=== PATIENT | female | born 1960 | race Caucasian/White ===

== ENCOUNTER 2016-10-11 17:41 | Emergency (ER) | payer BC ==
[2016-10-11 19:08] VITALS: BP 130/93
[2016-10-11] MEDS ORDERED: Sulfamethox/Trimethoprim DS 800/160* TAB PO ONE (19:30)
[2016-10-11] MEDS ORDERED: metroNIDAZOLE TAB* 250 MG PO ONE (19:30)
--- NOTE | 2016-10-11 19:30 | UC ---
Abdominal Pain Female HPI - History of Current Complaint Chief Complaint: UCGI Stated Complaint: POSSIBLE DIVERTICULITIS Hx Obtained From: Patient ?: No Onset/Duration: Sudden Onset, Lasting Days - 2, Worse Since - today Severity Initially: Mild Severity Currently: Moderate Location: Discrete At: LLQ Radiates: No Character: Dull Aggravating Factor(s): Movement, Other: - touch Alleviating Factor(s): Nothing Associated Signs and Symptoms: Positive: Fever. Negative: Back Pain, Constipation, Urinary Symptoms, Nausea, Vomiting, Diarrhea - Risk Factors Ectopic Risk Factor: Negative Ovarian Torsion Risk Factor: Negative Allergies/Adverse Reactions: Allergies Allergy/AdvReac Type Severity Reaction Status Date / Time Ciprofloxacin Allergy Swelling Verified 10/11/16 19:08 Of Face,Lips,& Throat Clavulanic Acid AdvReac Intermediate diarhhea Verified 09/09/13 16:09 [From Augmentin] Amoxicillin [From Augmentin] AdvReac Diarrhea Verified 09/09/13 16:09 Home Medications: Home Medications Multivitamins/Minerals TAB* [Thera M Plus TAB*] 1 tab PO DAILY 10/11/16 [ History Confirmed 10/11/16] PMH/Surg Hx/FS Hx/Imm Hx Endocrine History Of: Denies: Diabetes Cardiovascular History Of: Reports: Hypertension Denies: Cardiac Disorders Respiratory History Of: Denies: Asthma GI/ History Of: Reports: Diverticulitis Cancer History Of: Denies: Breast Cancer - Surgical History Surgical History: Yes Surgery Procedure, Year, and Place: OVARY REMOVED, HYSTERCTOMY, CSECTION - Family History Known Family History: Positive: Cardiac Disease, Hypertension, Diabetes - Social History Occupation: Retired Lives: With Family Alcohol Use: Occasionally Substance Use Type: None Smoking Status (MU): Never Smoked Tobacco Have You Smoked in the Last Year: No Review of Systems Constitutional: Fever Gastrointestinal: Abdominal Pain All Other Systems Reviewed And Are Negative: Yes Physical Exam Triage Information Reviewed: Yes Appearance: Well-Appearing, No Pain Distress - at rest, Well-Nourished Vital Signs: Initial Vital Signs Temp 100.5 F 10/11/16 19:00 Pulse 94 10/11/16 19:00 Resp 20 10/11/16 19:00 BP 130/93 10/11/16 19:00 Vital Signs Reviewed: Yes Eyes: Positive: Conjunctiva Clear ENT: Positive: Pharynx normal, TMs normal Neck exam: Normal Respiratory Exam: Normal Cardiovascular: Positive: RRR, Murmur:Sys:Grade _?_/ - 2/6 Abdomen Description: Negative: Nontender - Tender in the LLQ, Distended, Guarding, Hepatomegaly, Peritoneal Signs Bowel Sounds: Positive: Present Musculoskeletal Exam: Normal Neurological Exam: Normal Psychological Exam: Normal Skin Exam: Normal Abd Pain Female Course/Dx - Differential Dx/Diagnosis Differential Diagnosis: Appendicitis, Constipation, Diverticulitis Provider Diagnoses: Acute diverticulitis Discharge - Discharge Plan Condition: Stable Disposition: HOME Prescriptions: Metronidazole [Flagyl 500 MG TAB] 500 mg PO TID #30 tab Sulfamethox/Trimethoprim DS* [Bactrim DS 800/160 TAB*] 1 tab PO BID #20 tab Patient Education Materials: Diverticulitis (ED), Sulfamethoxazole/ Trimethoprim (By mouth), Metronidazole (By mouth)
== END 2016-10-11 19:55 | disposition home or self-care (01) ==
LOC: UCCORT 17:41
DX: K57.92 Diverticulitis of intestine, part unspecified, without perforation or abscess without bleeding (principal); R50.9 Fever, unspecified; Z88.1 Allergy status to other antibiotic agents; I10 Essential (primary) hypertension
CPT/HCPCS: 81003; 99213; A9270-GY; G0463

== ENCOUNTER 2017-08-15 07:53 | Emergency (ER) | payer BC ==
--- OUTSIDE RECORDS SUMMARY | 2017-08-15 08:03 | XMS REPORT ---
:1960 External Reference #:[id number] [facility] Address [address] [address] Phone [phone] Care Team Providers Name Role Phone Miesha Alegria MD Primary Care Physician Unavailable Payers Type Date Identification Numbers Payment Provider Subscriber Commercial Effective: Policy Number: BCBS Commercial Le Albarran 2011 [id number] PayID: [id number] [facility] [address] [place] [address] Problems Date Description Provider Status Onset: 07/11/2011 Vitamin D deficiency Miesha Alegria MD Active Onset: 09/28/2009 Heartburn Miesha Alegria MD Active Onset: 09/19/2014 Pure hypercholesterolemia Miesha Alegria MD Active Onset: 06/25/2015 Essential hypertension Miesha Alegria MD Active Onset: 06/25/2015 Asthma without status asthmaticus Miesha Alegria MD Active Onset: 02/06/2017 Obesity Thierno Cardona MD Active Onset: 07/10/2016 Mixed hyperlipidemia Miesha Alegria MD Active Onset: 02/07/2016 Tricuspid valve disorder, non-rheumatic Thierno Cardona MD Active Onset: 02/07/2016 Mitral valve disorder Thierno Cardona MD Active Family History Date Family Member(s) Problem(s) Comments Father Hypercholesterolemia Father due to Heart Disease () - (age 87 Years) Father Hypertension Father Diabetes, Adult Diabetes Mellitus, II Father CAD Mother Diabetes, Adult Diabetes Mellitus, II Mother due to CHF () - (age 89 Years). 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 Hand Dominance RIGHT-handed Cigarette Use Never Smoked Cigarettes ETOH Use Rarely consumes alcohol a couple drinks per year Smoking Patient has never smoked Daily Caffeine Consumes on average 2 cups of coffee per day Allergies, Adverse Reactions, Alerts Date Description Reaction Status Severity Comments 08/09/2013 Cipro Hives, Tightening In Throat active 08/09/2013 Augmentin Diarrhea & Dehydration active Medications Medication Date Status Form Strength Qnty SIG Indications Ordering Provider Pantoprazole 01/26/ Active Tablets 20mg 90tabs 1 by mouth Vanesa Alegria DR daily do not MD Miesha fill until pt needs Flovent HFA 03/13/ Active Aerosol 44mcg/Act 31.8gm 2 puff bid Raji 2015 MD Miesha Proair HFA 01/15/ Active Aerosol 108(90Base 1units 2 puffs Raji2014 ) mcg/Act every 4 MD Miesha hours as needed Centrum Silver 09/28/ Active Tablets 1 po qd Raji 2009 MD Miesha Atenolol / Active Tablets 100mg 90tabs take 1 Raji, 0000 tablet once MD Miesha daily Doxazosin / Active Tablets 8mg 180tab take 2 Raji, Mesylate 0000 s tablets by MD Miesha mouth at bedtime Famotidine 07/10/ Hx Tablets 10mg one a day Raji 2015 - otc MD Miesha 2016 Ventolin HFA 04/06/ Hx Aerosol 108mcg/Act 1Units 2 Raji2013 - inhalations MD Miesha 01/15/ every 4 2014 hours as needed cough or sob Ventolin HFA 25/ Hx Aerosol 108mcg/Act 1units 2 Raji 2013 - inhalations MD Miesha 09/21/ every 4 2014 hours as needed cough or sob Flovent HFA 01/12/ Hx Aerosol 44mcg/Act 3Units 2 Raji 2013 - inhalations MD Miesha 03/13/ twice a day 2015 Flovent HFA 01/12/ Hx Aerosol 44mcg/Act 3units 2 Raji 2013 - inhalations MD Miesha 09/21/ bid 2014 Pantoprazole / Hx Tablets 40mg 90tabs take 1 Vanesa Alegria 0000 - DR tablet by MD Miesha once 2016 daily Immunizations CPT Code Status Date Vaccine Reaction Lot # [id number] Given 04/24/2017 Afluria Imunization [facility] Q2035 Given 04/23/2016 Afluria Imunization [facility] Q2035 Given 04/22/2015 Afluria Imunization 09539 Given 05/04/2014 Influenza Vaccine Preservative Free 6-35 [facility] Months Of Age [address] Given 04/29/2013 Afluria Or Fluvirin Flu Vac Intramuscular 63635 Given 01/10/2013 Tdap (Adacel) Ages 7 And Above Only 94939 Given 08/31/2012 Zoster (Zostavax) 66638 Given 01/24/2001 Pneumococcal 23 Immunization Adult Or Immunosuppressed Patient 76984 Given 01/25/1996 Tetanus And Diptheria Toxoids For Adult Use-preservative free Vital Signs Date Vital Result Comment 07/30/2017 Weight 200.00 lb Heart Rate 76 /min BP Systolic 122 mmHg BP Diastolic 70 mmHg Respiratory Rate 18 /min Height 64 inches 5'4" 07/30/17 BMI (Body Mass Index) 34.3 kg/m2 02/06/2017 Weight 202.00 lb Heart Rate 96 /min regular BP Systolic 146 mmHg BP Diastolic 74 mmHg Height 64 inches 5'4" BMI (Body Mass Index) 34.7 kg/m2 01/26/2017 Weight 203.00 lb Heart Rate 72 /min BP Systolic 130 mmHg BP Diastolic 80 mmHg Respiratory Rate 18 /min Height 64 inches 5'4" 10/14/16 BMI (Body Mass Index) 34.8 kg/m2 2016 Body Temperature 97.8 F Weight 199.00 lb Heart Rate 64 /min BP Systolic 122 mmHg BP Diastolic 72 mmHg Respiratory Rate 18 /min Height 64 inches 5'4" 10/14/16 BMI (Body Mass Index) 34.2 kg/m2 07/10/2016 Weight 199.00 lb Heart Rate 68 /min BP Systolic 122 mmHg BP Diastolic 80 mmHg Respiratory Rate 18 /min Height 64 inches 5'4" 07/10/16 BMI (Body Mass Index) 34.2 kg/m2 02/07/2016 Weight 200.00 lb Heart Rate 72 /min regular BP Systolic 118 mmHg BP Diastolic 68 mmHg Height 64 inches 5'4" BMI (Body Mass Index) 34.3 kg/m2 01/23/2016 Weight 199.00 lb Heart Rate 76 /min BP Systolic 122 mmHg BP Diastolic 80 mmHg Respiratory Rate 18 /min Height 64.5 inches 5'4.50" BMI (Body Mass Index) 33.6 kg/m2 06/25/2015 Weight 216.00 lb Heart Rate 76 /min BP Systolic 140 mmHg BP Diastolic 70 mmHg Respiratory Rate 18 /min Height 64.5 inches 5'4.50" BMI (Body Mass Index) 36.5 kg/m2 01/15/2015 Weight 212.00 lb Heart Rate 68 /min BP Systolic 132 mmHg BP Diastolic 90 mmHg Respiratory Rate 185 /min Height 64.5 inches 5'4.50" BMI (Body Mass Index) 35.8 kg/m2 09/21/2014 Weight 210.00 lb BP Systolic 138 mmHg BP Diastolic 82 mmHg Respiratory Rate 18 /min Height 64.5 inches 5'4.50" BMI (Body Mass Index) 35.5 kg/m2 04/06/2014 Weight 212.00 lb Heart Rate 76 /min BP Systolic 124 mmHg BP Diastolic 84 mmHg Respiratory Rate 18 /min Height 64.5 inches 5'4.50" 01/12/2014 Weight 206.00 lb Heart Rate 76 /min BP Systolic 122 mmHg BP Diastolic 70 mmHg Respiratory Rate 18 /min Height 64.5 inches 5'4.50" 12/30/2013 Body Temperature 99.8 F Weight 208.00 lb Heart Rate 78 /min BP Systolic 132 mmHg BP Diastolic 70 mmHg Respiratory Rate 18 /min Height 64.5 inches 5'4.50" O2 % BldC Oximetry 93 % 10/19/2013 Body Temperature 98.7 F Weight 209.00 lb Heart Rate 72 /min BP Systolic 126 mmHg BP Diastolic 76 mmHg Respiratory Rate 18 /min Height 64.5 inches 5'4.50" Results Test Date Test Result H/L Range Note Laboratory test finding 01/19/2017 Vit D,25 Hydroxy 35 ng/mL 31-100 CBC With Auto Diff 01/19/2017 WBC 4.5 K/uL 4.1-11.0 RBC 4.32 M/uL 4.00-5.40 Hemoglobin 14.0 gm/dL 12.0-16.0 Hematocrit 40.7 % 36.0-47.0 MCV 94.2 fL 80.0-97.0 MCH 32.5 pg High 27.0-32.0 MCHC 34.5 g/dL 32.0-36.0 RDW 12.9 % 11.5-14.5 PLT Count 153 K/ul 140-400 Neutrophil 45.0 % 35.0-75.0 Lymphocyte 37.2 % 16.0-52.0 Monocyte 8.9 % 2.0-10.0 Eosinophil 7.6 % High 0.0-5.0 Basophil 1.3 % 0.0-4.0 Abs Neutrophils 2.0 K/uL Low 2.1-8.0 Abs Lymphocytes 1.7 K/uL 0.8-5.5 Abs Monocytes 0.4 K/uL 0.1-1.0 Abs Eosinophils 0.3 K/uL 0.0-0.5 Abs Basophils 0.1 K/uL 0.0-0.3 Lipid 01/19/2017 Cholesterol 233 mg/dL High 50-199 Triglycerides 139 mg/dL 30-200 HDL 60 mg/dL 35-85 1 Chol/ HDL Ratio 3.9 ratio 3.7-5.6 VLDL 28 mg/dL 2-29 LDL (Calc) 145 mg/dL High 20-99 2 Laboratory test finding 01/19/2017 TSH 2.11 uIU/mL 0.35-4.94 Hepatitis C Virus Antibody NONREACTIVE Nonreactive Comprehensive Met Panel-FCM 01/19/2017 Sodium 143 mmol/L 135-146 3 Potassium 4.2 mmol/L 3.5-5.2 Chloride# 109 mmol/L 97-110 4 Carbon Dioxide 27 mmol/L 24-34 Glucose 100 mg/dL 70-105 BUN 18 mg/dL 6-26 Creatinine 0.8 mg/dL 0.5-1.4 Calcium 9.7 mg/dL 8.5-10.2 Total Protein 6.2 g/dL 6.0-8.0 Albumin 4.2 g/dL 3.6-4.9 Globulin 2.0 g/dL 2.0-3.5 A/G Ratio 2.1 Ratio 1.0-2.2 Total Bilirubin 1.1 mg/dL 0.1-1.3 Alkaline Phosphatase 79 U/L 24-140 Alt 20 U/L 3-42 Ast 18 U/L 8-42 Anisa Egfr >60 >60 5 Non Anisa Egfr >60 >60 6 Anion Gap 11 mmol/L 7-16 7 Lipid Treatment 07/03/2016 Cholesterol 242 mg/dL High 50-199 8 Triglycerides 177 mg/dL 30-200 8 HDL 61 mg/dL 35-85 8, 9 Chol/ HDL Ratio 4.0 ratio 3.7-5.6 8 VLDL 35 mg/dL High 2-29 8 LDL (Calc) 146 mg/dL High 20-99 8, 10 Alt 18 U/L 3-42 8 Ast 17 U/L 8-42 8 CMP, Comp Metabolic Panel 01/16/2016 Glucose 95 mg/dL 74-106 BUN 16 mg/dL 7-18 Creatinine 0.7 mg/dL 0.6-1.3 Glom Filtration Rate, Estimate >60 mL/min >60 If >60 mL/min >60 11 BUN/Creat 22.8 ratio Sodium 142 mmol/L 136-145 Potassium 4.0 mmol/L 3.5-5.1 Chloride 107 mmol/L 98-107 Carbon Dioxide 29 mmol/L 21-32 Anion Gap 6 mEq/L Low 8-16 Calcium 9.4 mg/dL 8.5-10.1 Total Protein 7.0 g/dL 6.4-8.2 Albumin 3.8 g/dL 3.4-5.0 Globulin 3.2 g/dL 1.9-4.3 Alb/Glob 1.2 ratio Bilirubin,Total 1.5 mg/dL High 0.2-1.0 Sgot/Ast 20 U/L 15-37 SGPT/Alt 29 U/L 12-78 Alkaline Phosphatase 104 U/L 45-117 CBC With Auto Diff 01/16/2016 White Blood Count 4.9 K/uL 3.1-10.7 Red Blood Count 4.69 M/uL 3.90-5.40 Hemoglobin 15.0 gm/dL 11.6-15.8 Hematocrit 43.4 % 36.0-46.1 Mean Cell Volume 92.5 fl 80.9-99.0 Mean Corpuscular HGB 32.0 pg 25.9-32.7 Mean Corpuscular HGB Conc 34.6 g/dL High 30.8-34.3 Platelet Count 173 K/uL 155-360 Red Cell Distri Width SD 42.1 fl 3-47 Red Cell Distri Width %CV 13.0 % 11.7-14.4 Mean Platelet Volume 11.2 fL 8.9-12.4 Neut% 50.7 % 40.4-72.8 Lymph % 32.8 % 17.0-46.1 Manati % 8.5 % 4.3-13.2 Eo% 6.6 % 0.0-6.6 Bas% 1.4 % High 0.0-1.1 Neut# 2.46 K/uL 1.8-7.0 Lymph # 1.59 K/uL Low 1.8-7.0 Manati # 0.41 K/uL 0.3-0.9 Eos # 0.32 K/uL 0.0-0.5 Baso # 0.07 K/uL 0.0-0.1 Laboratory test finding 01/16/2016 Thyroid Stim Hormone 1.46 uIU/mL 0.30- 4.20 Lipid Panel 01/16/2016 Cholesterol 247 mg/dL High <200 12 Triglycerides 241 mg/dL High <150 13 HDL Cholesterol 55 mg/dL >40 14 LDL-Cholesterol 144 mg/dL < 100 15 Laboratory test 01/15/2015 HPV Laboratory Allia 16 finding <SEE NOTE> Laboratory test 01/15/2015 Pap Smear Thin SEE NOTE 17 finding Prep Laboratory test 01/09/2015 Vit D,25 Hydroxy 45 ng/mL 31-100 18 finding Basic (BMP) 01/09/2015 Sodium 139 mmol/L 134-142 18 Potassium 4.4 mmol/L 3.5-5.2 18 Chloride 103 mmol/L 97-109 18 Carbon Dioxide 29 mmol/L 24-34 18 Glucose 100 mg/dL 70-105 18 BUN 16 mg/dL 6-26 18 Creatinine 0.8 mg/dL 0.5-1.4 18 Calcium 10.0 mg/dL 8.5-10.2 18 Anion Gap 11 mmol/L 6-14 18 Non Anisa Egfr >60 >60 18, 19 Anisa Egfr >60 >60 18, 20 Lipid Treatment 01/09/2015 Cholesterol 234 mg/dL High 50-199 18 Triglycerides 208 mg/dL High 30-200 18 HDL 51 mg/dL 35-85 18, 21 Chol/ HDL Ratio 4.6 ratio 3.7-5.6 18 VLDL 42 mg/dL High 2-29 18 LDL (Calc) 141 mg/dL High 20-99 18, 22 Alt 22 U/L 3-42 18 Ast 20 U/L 8-42 18 Laboratory test finding 01/09/2015 TSH 2.31 uIU/mL 0.35-4.94 18 CBC With Auto Diff 01/09/2015 WBC 4.9 K/uL 4.1-11.0 18 RBC 4.68 M/uL 4.00-5.40 18 Hemoglobin 15.2 gm/dL 12.0-16.0 18 Hematocrit 43.7 % 36.0-47.0 18 MCV 93.3 fL 80.0-97.0 18 MCH 32.5 pg High 27.0-32.0 18 MCHC 34.8 g/dL 32.0-36.0 18 RDW 13.1 % 11.5-14.5 18 PLT Count 171 K/ul 140-400 18 Neutrophil 47.8 % 35.0-75.0 18 Lymphocyte 33.7 % 16.0-52.0 18 Monocyte 8.3 % 2.0-10.0 18 Eosinophil 7.5 % High 0.0-5.0 18 Basophil 2.7 % 0.0-4.0 18 Abs Neutrophils 2.4 K/uL 2.1-8.0 18 Abs Lymphocytes 1.7 K/uL 0.8-5.5 18 Abmon 0.4 K/uL 0.1-1.0 18 Abs Eosinophils 0.4 K/uL 0.0-0.5 18 Abs Basophils 0.1 K/uL 0.0-0.3 18 Lipid Panel 03/30/2014 Chol/HDL Ratio 4.6 ratio Cholesterol 237.0 mg/dL High 50.0-199.0 HDL 52.0 mg/dL 29.0-86.0 LDL, Calculated 146.0 mg/dL High 20.0-129.0 Triglycerides 195.0 mg/dL 30.0-249.0 vLDL 39.0 ng/dL Laboratory test finding 03/30/2014 Alt 35.0 U/L 9.0-52.0 Ast 24.0 U/L 14.0-36.0 Lipid Panel 01/09/2014 Chol/HDL Ratio 4.3 ratio Cholesterol 226.0 mg/dL High 50.0-199.0 HDL 53.0 mg/dL 29.0-86.0 LDL, Calculated 141.6 mg/dL High 20.0-129.0 Triglycerides 157.0 mg/dL 30.0-249.0 vLDL 31.4 ng/dL Laboratory test finding 01/09/2014 Alt 20.0 U/L 9.0-52.0 Ast 18.0 U/L 14.0-36.0 Laboratory test finding 12/30/2013 Throat Culture Complete See Note 23 Laboratory test finding 10/19/2013 Culture Urine See Note 24 Lipid Panel 07/04/2013 Chol/HDL Ratio 3.8 ratio Cholesterol 200.0 mg/dL High 50.0-199.0 HDL 53.0 mg/dL 29.0-86.0 LDL, Calculated 120.2 mg/dL 20.0-129.0 Triglycerides 134.0 mg/dL 30.0-249.0 vLDL 26.8 ng/dL Laboratory test finding 07/04/2013 % Baso. 3.3 % High 0.0-2.0 % Eos. 6.2 % High 0.0-4.0 % Lymph 33 % 20-44 % Manati 7.8 % 2.0-10.0 % Andres 50 % 50-70 Absolute Baso. 0.2 K/ul 0.0-0.3 Absolute Eos. 0.3 K/ul 0.0-0.5 Absolute Lymph. 1.6 K/ul 0.8-4.8 Absolute Manati. 0.4 K/ul 0.1-1.0 Absolute Andres. 2.38 K/ul 2.05-7.63 Alt 28.0 U/L 9.0-52.0 Ast 22.0 U/L 14.0-36.0 BUN 17.0 mg/dL 7.0-18.0 BUN/Creat Ratio 21.3 ratio High 12.0-20.0 Calcium 9.7 mg/dL 8.7-10.5 Chloride 107.0 mmol/L 98.0-107.0 Co2 26.0 mmol/L 22.0-30.0 Creatinine-Serum 0.8 mg/dL 0.7-1.2 Glucose 100.0 mg/dL 75.0-110.0 HCT 40.0 % 37.0-51.0 HGB 13.9 Gm/dl 12.0-16.0 MCH 31.6 pg 26.0-32.0 MCHC 34.7 g/dL 31.0-36.0 MCV 91.1 Fl 80.0-97.0 MPV 8.5 fL 6.0-10.0 PLT 192 K/ul 140-440 Potasium 4.0 mmol/L 3.6-5.0 RBC 4.4 M/ul 4.2-6.3 RDW 11.6 % 11.5-14.5 Sodium 141.0 mmil/L 137.0-145.0 TSH 1.33 uIU/ml 0.50-6.00 WBC 4.8 K/ul 4.1-10.9 eGFR 79.4 Lipid Panel 01/03/2013 Chol/HDL Ratio 3.7 ratio Cholesterol 209.0 mg/dL High 50.0-199.0 HDL 56.0 mg/dL 29.0-86.0 LDL, Calculated 128.6 mg/dL 20.0-129.0 Triglycerides 122.0 mg/dL 30.0-249.0 vLDL 24.4 ng/dL Laboratory test finding 01/03/2013 Alt 22.0 U/L 9.0-52.0 Ast 19.0 U/L 14.0-36.0 1 Per NCEP ATP III Guidelines: Results lower than 40 mg/dL are suggestive of increased risk for coronary artery disease. Results > or=to 60 mg/dL are considered a negative risk factor. 2 Per NCEP ATP III Guidelines: Normal Population <130 Patients with medical conditions: CHD/DM Optimal: <100 Borderline high: 130-159 High: 160-189 Very high: >189 3 Updated reference range on new analyzer 4 Updated reference range on new analyzer 5 Concerning GFR Guidelines for Americans: Normal function or mild renal disease, if clinically at risk: >/=60 mL/min Moderately decreased: 30-59 Severely decreased: 15-29 Renal failure: <15 6 Concerning GFR Guidelines: Normal function or mild renal disease, if clinically at risk: >/=60 mL/min Moderately decreased: 30-59 Severely decreased: 15-29 Renal failure: <15 Glomerular Filtration Rate (GFR) is estimated based on the MDRD equation, which assumes a steady state for creatinine as recommended by the National Kidney Disease Education Program in conjunction with the National Institutes of Health and the National Kidney Foundation. Clinical conditions in which it may be necessary to measure GFR by using clearance methods include extremes of age and body size, severe malnutrition or obesity, diseases of skeletal muscle, paraplegia or quadriplegia, vegetarian diet, rapidly changing kidney function, and calculation of the dose of potentially toxic drugs that are excreted by the kidneys. 7 Updated reference range on new analyzer 8 6 mos 9 Per NCEP ATP III Guidelines: Results lower than 40 mg/dL are suggestive of increased risk for coronary artery disease. Results > or=to 60 mg/dL are considered a negative risk factor. 10 Per NCEP ATP III Guidelines: Normal Population <130 Patients with medical conditions: CHD/DM Optimal: <100 Borderline high: 130-159 High: 160-189 Very high: >189 11 Note: Persistent reduction for 3 months or more in an eGFR <60 mL/min/1.73 m2 defines CKD. Patients with eGFR values >/=60 mL/min/1.73 m2 may also have CKD if evidence of persistent proteinuria is present. The original MDRD equation for estimated GFR is not valid for patients less than 18 years of age. Additional information may be found at www.kdoqi.org. 12 Reference Guidelines*: Desirable: ........... < 200 mg/dL Borderline High: ..... 200-239 mg/dL High: ................ >=240 mg/dL * The National Cholesterol Education Program (NCEP) 13 Reference Guidelines*: Normal: ............. < 150 mg/dL Borderline High: .... 150-199 mg/dL High: ............... 200-499 mg/dL Very High: .......... > 500 mg/dL * Source: National Cholesterol Education Program (NCEP) 14 Reference Guidelines*: Low HDL: ..... < 40 mg/dL Normal: ..... 40-60 mg/dL Desirable: ... > 60 mg/dL *The National Cholesterol Education Program(NCEP) 15 Reference Guidelines*: Optimal:........... <100 mg/dL Near Optimal....... 100-129 mg/dL Borderline High.... 130-159 mg/dL High............... 160-189 mg/dL Very High.......... >=190 mg/dL * Source: National Cholesterol Education Program (NCEP) 16 [employer] [address] [address] Amplified Molecular High Risk HPV Test Accession Number [id number] Specimen(s) Received A: High Risk HPV Thin Prep Cervical / Endocervical Pap Smear - One Vial Other Case Numbers: [id number] Diagnosis RISK GROUPS RESULTS High Risk NEGATIVE Tested for HPV Types (16, 18, 31, 33, 35, 39, 45, 51, 52, 56, 58, 59, 66, 68) Reported: 01/17/2015 14:30 Electronically Signed Out By Yu Day [facility] [employer] [facility]. [address] [place] [address] GYNECOLOGIC CYTOLOGY REPORT Accession Number: [id number] Source of Specimen(s): A: Thin Prep Cervical / Endocervical Pap Smear - One Vial Clinical Diagnosis and History: Date of Last Menstrual Period: 2008 Treatment History: Hysterectomy: Supracervical Other Clinical Conditions: Last Pap Smear: 2011 normal HPV ASSAY REQUESTED Specimen Adequacy Satisfactory for evaluation Presence of endocervical/transformation zone component General Categorization Negative for intraepithelial lesion or malignancy Interpretation NEGATIVE FOR INTRAEPITHELIAL LESION OR MALIGNANCY Recommendations HPV testing will be performed and a separate report will be issued. Reported: 01/17/2015 Electronically Signed Out By Cici VELIZ(ASCP) [facility] dol Unless otherwise specified, testing performed by [facility] [address] [address] 18 01/24 19 Concerning GFR Guidelines: Normal function or mild renal disease, if clinically at risk: >/=60 mL/min Moderately decreased: 30-59 Severely decreased: 15-29 Renal failure: <15 Glomerular Filtration Rate (GFR) is estimated based on the MDRD equation, which assumes a steady state for creatinine as recommended by the National Kidney Disease Education Program in conjunction with the National Institutes of Health and the National Kidney Foundation. Clinical conditions in which it may be necessary to measure GFR by using clearance methods include extremes of age and body size, severe malnutrition or obesity, diseases of skeletal muscle, paraplegia or quadriplegia, vegetarian diet, rapidly changing kidney function, and calculation of the dose of potentially toxic drugs that are excreted by the kidneys. 20 Concerning GFR Guidelines for Americans: Normal function or mild renal disease, if clinically at risk: >/=60 mL/min Moderately decreased: 30-59 Severely decreased: 15-29 Renal failure: <15 21 Per NCEP ATP III Guidelines: Results lower than 40 mg/dL are suggestive of increased risk for coronary artery disease. Results > or=to 60 mg/dL are considered a negative risk factor. 22 Per NCEP ATP III Guidelines: Normal Population <130 Patients with medical conditions: CHD/DM Optimal: <100 Borderline high: 130-159 High: 160-189 Very high: >189 23 NORMAL THROAT CITLALY 24 COLONY COUNT ! 10,000 - 20,000 CFU/ml Organism 1 ! MIXED URETHRAL CITLALY Procedures Date CPT Code Description Status Comment 02/16/2017 Mammogram Completed 02/06/2017 33136 ECHO Transthoracic Inc Completed Performance Continuous Electrocardio 02/06/2017 56654 Doppler Color Flow Velocity Completed Mapping 02/06/2017 45689 Doppler Echocardiography Completed Complete 10/23/2016 05503 ECHO Transthoracis 2D W Completed Spectral Doppler 2016 52471 X-Ray Wrist Complete Completed 06/25/2015 22959 Electrocardiogram Complete Completed 01/24/2015 Mammogram Completed 10/04/2014 51731 Bone Density Study (Dexa) Axial Completed Skeleton (Hips,Pelvis,Spine) 10/04/2014 Bone Mineral Density Test Completed 07/17/2014 Mammogram Completed 02/10/2009 Colonoscopy Completed No problems found other than diverticula - repeat in 10 years. Encounters Type Date Location Provider CPT E/M Dx Office Visit 02/06/2017 2:45p [facility] [place] [address] I10 E78.00 E66.09 Office Visit 01/26/2017 8:15a [facility] [address] Z01.419 E55.9 R12 I10 J45.909 E78.2 I05.9 Z68.34 Office Visit 2016 10:30a [facility] [place] [address] K57.32 R55 S06.0x1D M25.532 Office Visit 07/10/2016 8:45a [facility] [address] E55.9 R12 I10 I05.9 E78.2 J45.20 Z68.34 Z11.59 Office Visit 02/07/2016 2:00p [facility] [place] [address] I10 E78.0 I34.0 I36.1 Office Visit 01/23/2016 8:30a [facility] [place] [address] Z01.411 I10 J45.909 E78.0 R12 E55.9 M72.2 Z12.31 I36.1 Office Visit 06/25/2015 9:00a [facility] [place] [address] E55.9 R12 I10 J45.909 E78.0 R00.2 Office Visit 01/15/2015 10:30a [facility] [place] [address] V72.31 V76.11 V85.35 268.9 787.1 401.1 272.2 493.00 Office Visit 09/21/2014 9:15a [facility] [address] 268.9 787.1 401.1 272.2 493.00 733.90 Plan of Care Future Appointment(s):01/25/2018 8:00 am - Schedule, Laboratory at [facility]2017 8:15 am - Miesha Alegria MD at [facility]07/30/2017 - Miesha Alegria MDE55.9 Vitamin D deficiency, unspecifiedNew Labs:Vit D,25 HydroxyComments:continue supplementFollow up:follow-up as scheduled in HeartburnComments:doing well on low dose [id number] Essential (primary) hypertensionNew Labs:CBC With Auto DiffTSHComments:controlled with current naplordgxoO71.909 Unspecified asthma, uncomplicatedComments:has not needed inhaler since last office opztuC44.2 Mixed hyperlipidemiaNew Labs:LipidComments:diet controlled - check labs in 6 monthsAllComments:diet controlled - follow labs
--- NOTE | 2017-08-15 08:42 | UC ---
Abdominal Pain Female HPI - HPI Summary HPI Summary: Per blood bank attendant ""I think I have diverticulitis..." c/o "fullness" in left lower quadrant with increased "dull" pain in the area. States she has had diverticulitis before and this seems similar. " has had 4-5 episodes in past 10 yrs. last was over 1 yr ago. follows w/ Dr Gooden. Has discussed surgery but he did not think it was necessary. -sx started 1 wk ago, but came and went. got worse last night at 5/10 but better today at 3/10. -denies f/c. has some left flank pain -no dysuria, no hematuria. - History of Current Complaint Chief Complaint: UCGI Stated Complaint: STOMACH CONCERNS Time Seen by Provider: 08/15/17 08:15 Pain Intensity: 2 Allergies/Adverse Reactions: Allergies Allergy/AdvReac Type Severity Reaction Status Date / Time ciprofloxacin Allergy Swelling Verified 08/15/17 08:03 Of Face,Lips,& Throat amoxicillin [From Augmentin] AdvReac Diarrhea Verified 08/15/17 08:03 clavulanic acid AdvReac Diarrhea Verified 08/15/17 08:03 [From Augmentin] Home Medications: Home Medications Pantoprazole TAB (NF) [Protonix TAB (NF)] 20 mg PO DAILY 08/15/17 [History Confirmed 08/15/17] PMH/Surg Hx/FS Hx/Imm Hx Previously Healthy: Yes Cardiovascular History: Hypertension - Surgical History Surgical History: Yes Surgery Procedure, Year, and Place: OVARY REMOVED, HYSTERCTOMY, CSECTION - Family History Known Family History: Positive: Cardiac Disease, Hypertension, Diabetes - Social History Alcohol Use: Rare Substance Use Type: None Smoking Status (MU): Never Smoked Tobacco Have You Smoked in the Last Year: No Review of Systems Constitutional: Negative Skin: Negative Eyes: Negative ENT: Negative Respiratory: Negative Cardiovascular: Negative Gastrointestinal: Abdominal Pain Genitourinary: Negative Motor: Negative Neurovascular: Negative Musculoskeletal: Negative Neurological: Negative Psychological: Negative Is Patient Immunocompromised?: No All Other Systems Reviewed And Are Negative: Yes Physical Exam Triage Information Reviewed: Yes Appearance: Well-Appearing, No Pain Distress, Well-Nourished - very pleasant Vital Signs: Initial Vital Signs Temp 98.4 F 08/15/17 08:05 Pulse 74 08/15/17 08:05 Resp 16 08/15/17 08:05 BP 133/67 08/15/17 08:05 Pulse Ox 99 08/15/17 08:05 Eye Exam: Normal ENT Exam: Normal ENT: Positive: Pharynx normal, TMs normal Neck exam: Normal Neck: Positive: Supple, Nontender, No Lymphadenopathy Respiratory: Positive: Lungs clear, Normal breath sounds, No respiratory distress, No accessory muscle use. Negative: Crackles, Rhonchi, Stridor, Wheezing Cardiovascular Exam: Normal Cardiovascular: Positive: RRR, No Murmur, Pulses Normal, Brisk Capillary Refill Abdomen Description: Positive: Soft, Other: - mild LLQ pain, no pain in other quadrants. Negative: CVA Tenderness (R), CVA Tenderness (L), Distended, Guarding, Peritoneal Signs, Pulsatile Mass Bowel Sounds: Positive: Present Musculoskeletal Exam: Normal Neurological Exam: Normal Psychological Exam: Normal Skin Exam: Normal Abd Pain Female Course/Dx - Course Course Of Treatment: CT A/P w/ oral contrast today. - Differential Dx/Diagnosis Differential Diagnosis: Constipation, Diverticulitis, Renal Colic Provider Diagnoses: Abdominal pain Discharge - Discharge Plan Condition: Stable Disposition: HOME Patient Education Materials: Diverticulosis (ED) Referrals: Miesha Alegria MD [Primary Care Provider] - 4 Days Additional Instructions: We discussed that the CT report does not indicate any diverticulitis. If you pain worsens, you should discuss with your PCP or return here. We discussed the lymph nodes on the CT. They are not specifically mentioned to be abnml or enlarged in size, just noted. Follow up with your PCP.
[2017-08-15 10:09] VITALS: BP 130/72
--- NOTE | 2017-08-15 10:40 | RAD ---
CLINICAL HISTORY: 4-5 days of left lower quadrant pain. Relevant surgical history includes hysterectomy. COMPARISON: None TECHNIQUE: Oral contrast only CT examination of the abdomen and pelvis from the lung bases through the initial tuberosities. FINDINGS: VISUALIZED LUNG BASES: The visualized lung bases are grossly clear. There is no pleural effusion. ABDOMEN AND PELVIS: Evaluation of the solid organs and vasculature is limited without intravenous contrast. The liver, spleen, pancreas and adrenal glands are grossly normal in appearance. The gallbladder is normal. The kidneys are normal in appearance without focal mass, calcification or signs of hydronephrosis. There are contrast has progressed as far as the descending colon. The small and large bowel are not distended. The appendix is top normal measuring up to 9 mm in diameter (coronal image 49) but there is contrast filling the lumen and no definite periappendiceal inflammatory change. There are diverticula beginning at the distal descending colon becoming more numerous at the sigmoid colon. There is no definite wall thickening or severe pericolonic inflammatory change to indicate acute diverticulitis. Scattered mesenteric lymph nodes are seen. The largest measures just under 9 mm in short axis diameter (coronal image 45). The uterus is surgically absent. The abdominal aorta and iliac arteries are normal in course and diameter. Degenerative changes include multilevel loss of intervertebral disc height involving the lower thoracic and lumbar spine. The most severe degenerative change is seen at T10/T11 where there is endplate sclerosis at the superior endplate of T11 and a subchondral lucency most consistent with a Schmorl's node. IMPRESSION: 1. Distal colonic diverticulosis without definite acute inflammatory changes consistent with diverticulitis. 2. Mildly enlarged cecal appendix but with contrast filling the lumen and no periappendiceal inflammatory changes. 3. Additional chronic, degenerative and postsurgical changes described in the body the report unlikely to be related to the patient's current presentation.
== END 2017-08-15 11:05 | disposition home or self-care (01) ==
LOC: UCCORT 07:53
DX: R10.32 Left lower quadrant pain (principal)
CPT/HCPCS: 74176; 99212; G0463

== ENCOUNTER 2018-12-12 08:50 | Emergency (ER) | payer BC ==
[2018-12-12 09:18] VITALS: BP 136/69
--- NOTE | 2018-12-12 09:34 | UC ---
Abdominal Pain Female HPI - HPI Summary HPI Summary: 58 yo female presents with diffuse lower abd pain x 2 days pain waxes and wanes kept her up last PM now 10/20 no n/v/d no uti symptoms has had hysterectomy hx endometriosis hx multiple episodes of diverticulitis - History of Current Complaint Chief Complaint: UCAbdominalPain Stated Complaint: ABD PAIN/PRESSURE x2 DAYS Time Seen by Provider: 12/12/18 09:18 Hx Obtained From: Patient Onset/Duration: Sudden Onset, Lasting Days Timing: Constant Severity Initially: Mild Severity Currently: Mild Pain Intensity: 4 Pain Scale Used: 0-10 Numeric Location: Diffuse - lower abd Radiates: No Character: Aching, Cramping Aggravating Factor(s): Nothing Alleviating Factor(s): Nothing Associated Signs and Symptoms: Positive: Decreased Appetite. Negative: Diaphoresis, Fever, Cough, Chest Pain, Dizzy, Back Pain, Constipation, Blood in Stool, Urinary Symptoms, Vaginal Bleeding, Vaginal Discharge, Nausea, Vomiting, Diarrhea Female Torso: 1 - pain and tenderness here, feels bloated Allergies/Adverse Reactions: Allergies Allergy/AdvReac Type Severity Reaction Status Date / Time ciprofloxacin Allergy Swelling Verified 12/12/18 09:09 Of Face,Lips,& Throat erythromycin base AdvReac Severe diarrhea, Verified 12/12/18 09:09 weakness, dehydration amoxicillin [From Augmentin] AdvReac Diarrhea Verified 12/12/18 09:09 clavulanic acid AdvReac Diarrhea Verified 12/12/18 09:09 [From Augmentin] Home Medications: Home Medications Acetaminophen/Diphenhydramine [Tylenol Pm Ex-Strength Caplet] 1 each PO PRN 08/31 [History] PMH/Surg Hx/FS Hx/Imm Hx Previously Healthy: Yes Endocrine History: Dyslipidemia Cardiovascular History: Hypertension GI/ History: Gastroesophageal Reflux - Surgical History Surgical History: Yes Surgery Procedure, Year, and Place: OVARY REMOVED, HYSTERCTOMY, CSECTION - Family History Known Family History: Positive: Cardiac Disease, Hypertension, Diabetes - Social History Alcohol Use: Rare Substance Use Type: None Smoking Status (MU): Never Smoked Tobacco Have You Smoked in the Last Year: No Review of Systems All Other Systems Reviewed And Are Negative: Yes Constitutional: Positive: Chills Skin: Positive: Negative Eyes: Positive: Negative ENT: Positive: Negative Respiratory: Positive: Negative Cardiovascular: Positive: Negative Gastrointestinal: Positive: Abdominal Pain Motor: Positive: Negative Neurovascular: Positive: Negative Musculoskeletal: Positive: Negative Neurological: Positive: Negative Psychological: Positive: Negative Physical Exam Triage Information Reviewed: Yes Appearance: Well-Appearing, No Pain Distress, Well-Nourished Vital Signs: Initial Vital Signs Temp 98.4 F 12/12/18 09:11 Pulse 65 12/12/18 09:11 Resp 16 12/12/18 09:11 BP 136/69 12/12/18 09:11 Pulse Ox 99 12/12/18 09:11 Vital Signs Reviewed: Yes Eyes: Positive: Conjunctiva Clear ENT: Positive: Hearing grossly normal. Negative: Nasal congestion, Nasal drainage, Trismus, Muffled voice, Hoarse voice Neck: Positive: Supple, Nontender, No Lymphadenopathy Respiratory: Positive: Lungs clear, Normal breath sounds, No respiratory distress, No accessory muscle use Cardiovascular: Positive: RRR, No Murmur Abdomen Description: Positive: Soft, Distended. Negative: Nontender - diffusely tender across lower abdomen, CVA Tenderness (R), CVA Tenderness (L) Bowel Sounds: Positive: Present, Hypoactive Musculoskeletal: Positive: ROM Intact, No Edema Neurological: Positive: Alert Psychological Exam: Normal Skin Exam: Normal Abd Pain Female Course/Dx - Course Course Of Treatment: d/w ED attending [facility] to ER via POV - Differential Dx/Diagnosis Provider Diagnosis: Abdominal pain, lower Discharge - Sign-Out/Discharge Documenting (check all that apply): Patient Departure All imaging exams completed and their final reports reviewed: No Studies - Discharge Plan Condition: Stable Disposition: HOME-RECOMMEND TO ED Referrals: Miesha Alegria MD [Primary Care Provider] - Additional Instructions: I suggest you go to the [facility] ER for evaluation of your abd pain don't eat or drink en route - Billing Disposition and Condition Condition: STABLE Disposition: Home-Recommend to ED
== END 2018-12-12 09:38 | disposition home health service (06) ==
LOC: UCCORT 08:50
DX: R10.31 Right lower quadrant pain (principal); R10.32 Left lower quadrant pain; I10 Essential (primary) hypertension
CPT/HCPCS: 81003; 99212; G0463

== ENCOUNTER 2023-02-12 10:41 | Observation (INO) ==
[~2023-02-12 10:41] MED LIST: Buffered Lidocaine 1% SYRIN 1 ml INTRADERM ONE; HYDROmorphone 1 MG/1 ML SYRINGE IV PRN; Lactated Ringers 1000 ml BAG 1,000 ML IV SCH; Naloxone 0.4 mg VIAL 0.4 mg/ml 1 ml VIAL IV PRN; Prochlorperazine 5 mg/ml 2 ml VIAL (10 mg) IV PRN
[2023-02-12] MEDS ORDERED: ceFAZolin 2 GM in NS PREMIX 2 GM/100 ML BAG IVPB ONE (11:24)
[2023-02-12 12:00] LABS: Rapid COVID-19 Molecular Undetected (Undetected)
[2023-02-12] MEDS ORDERED: Ondansetron 4 mg VIAL 2 MG/ML 2 ml VIAL ONE (12:49)
[2023-02-12] MEDS ORDERED: Lidocaine 2% PF 5 ML VIAL ONE (12:49)
[2023-02-12] MEDS ORDERED: Midazolam 2 mg/2 ml VIAL 1 mg/ml 2 ml VIAL (2 mg) ONE (12:49)
[2023-02-12] MEDS ORDERED: Propofol 10 MG/ML 20 ML BTL ONE ×2 (12:49→16:42)
[2023-02-12] MEDS ORDERED: fentaNYL 100 mcg/2 ml 50 MCG/ML VIAL ONE ×3 (12:49→18:36)
[2023-02-12] MEDS ORDERED: Bupivacaine 0.5% 50 ML MDV VIAL ONE (13:58)
[2023-02-12] MEDS ORDERED: Midazolam 5 mg/ml concentrated 5 mg/ml 1 ml VIAL ONE (14:04)
[2023-02-12] MEDS ORDERED: ROPIVACAINE 5 MG/ML 30 ML BTL (0.5%) ONE (14:13)
[2023-02-12] MEDS ORDERED: Ondansetron ODT 4 mg TAB 4 MG TAB PO PRN (14:55)
[2023-02-12] MEDS ORDERED: Ondansetron 4 mg VIAL 2 MG/ML 2 ml VIAL IV PRN (14:55)
[2023-02-12] MEDS ORDERED: Lactulose 30 ml UDC PO PRN (14:55)
[2023-02-12] MEDS ORDERED: Magnesium Hydroxide LIQ 30 ML UDC PO PRN (14:55)
[2023-02-12] MEDS ORDERED: Morphine 2 MG/ML SYRINGE IV PRN (14:55)
[2023-02-12] MEDS ORDERED: Lactated Ringers 1000 ml BAG 1,000 ML IV SCH (15:00)
[2023-02-12] MEDS ORDERED: Acetaminophen IV 1 GM/100ML 1,000 MG/100 ML BAG IV ONE (15:33)
[2023-02-12] MEDS ORDERED: Dexamethasone IV 4 MG/ML VIAL 1 ml VIAL ONE (15:46)
[2023-02-12] MEDS: fentaNYL 100 mcg/2 ml 50 MCG/ML VIAL IV PRN ×2 (18:37→18:58)
[2023-02-12] MEDS: ceFAZolin 1 GM ADVAN 1 GM in NS 0.9% 50 ML 50 ML IVPB SCH (22:58)
[2023-02-12] MEDS: Magnesium Hydroxide LIQ 30 ML UDC PO SCH (23:01)
[2023-02-13] MEDS: ceFAZolin 1 GM ADVAN 1 GM in NS 0.9% 50 ML 50 ML IVPB SCH ×2 (05:46→14:25)
[2023-02-13 06:34] LABS: Hematocrit 39.1 % (35-45); Hemoglobin 13.4 g/dL (11.5-14.3); Mean Platelet Volume 8.7 fL (7.5-11.2); Platelet Count 193 10^3/uL (150-450)
[2023-02-13 06:50] LABS: Calcium 9.6 mg/dL (8.6-10.3); Creatinine, Serum 0.87 mg/dL (0.51-0.95); Potassium 4.1 mmol/L (3.5-5.0); eGFR CKD-EPI 74.4 (>60)
[2023-02-13] MEDS: Magnesium Hydroxide LIQ 30 ML UDC PO SCH (08:37)
[2023-02-13] MEDS ORDERED: Vitamin THERAPEUTIC TAB PO SCH (09:00)
[2023-02-13 14:38] VITALS: BP 144/77
== END 2023-02-13 15:00 | disposition home or self-care (01) ==
LOC: INTOOBSV 10:41 → AA 10:41 → SSU 19:58
PROVIDERS: ADMIT Orthopaedic Surgery Adult Reconstructive Orthopaedic Surgery; ATTEND Orthopaedic Surgery Adult Reconstructive Orthopaedic Surgery

== ENCOUNTER 2023-12-15 10:45 | Observation (INO) ==
[~2023-12-15 10:45] MED LIST changes: -Buffered Lidocaine 1% SYRIN 1 ml INTRADERM ONE; -HYDROmorphone 1 MG/1 ML SYRINGE IV PRN; -Lactated Ringers 1000 ml BAG 1,000 ML IV SCH; +Ondansetron 4 mg VIAL 2 MG/ML 2 ml VIAL IV PRN; -Prochlorperazine 5 mg/ml 2 ml VIAL (10 mg) IV PRN; +fentaNYL 100 mcg/2 ml 50 MCG/ML VIAL IV PRN
[2023-12-15 14:13] LABS: Rapid COVID-19 Molecular Undetected (Undetected)
[2023-12-15] MEDS ORDERED: ceFAZolin 2 GM PREMIX 2 GM/50 ML BAG ONE (14:14)
[2023-12-15] MEDS ORDERED: Tranexamic Acid 1 GM/100ML BAG 2,000 MG/200 ML BAG IV ONE (14:16)
[2023-12-15 14:49] LABS: Hematocrit 46.4 % (35-45); Hemoglobin 16.2 g/dL (11.5-14.3); Mean Corpuscular Hemoglobin 33.2 pg (27-33); Mean Corpuscular Hgb Conc 34.9 g/dL (31-36); Mean Corpuscular Volume 95.2 fL (80-97); Mean Platelet Volume 9.5 fL (7.5-11.2); Platelet Count 214 10^3/uL (150-450); Red Blood Count 4.88 10^6/uL (3.63-4.92); Red Cell Distribution Width 13.5 % (12-17); White Blood Count 6.5 10^3/uL (3.8-11.8)
[2023-12-15] MEDS: Buffered Lidocaine 1% SYRIN 1 ml INTRADERM ONE (15:29)
[2023-12-15] MEDS: Lactated Ringers 1000 ml BAG 1,000 ML IV SCH ×2 (15:29→21:19)
[2023-12-15] MEDS ORDERED: Midazolam 2 mg/2 ml VIAL 1 mg/ml 2 ml VIAL (2 mg) ONE (16:14)
[2023-12-15] MEDS ORDERED: ROPIVACAINE 5 MG/ML 30 ML BTL (0.5%) ONE ×2 (16:14→16:18)
[2023-12-15] MEDS ORDERED: Dexamethasone IV 4 MG/ML VIAL 1 ml VIAL ONE ×2 (16:14→17:38)
[2023-12-15] MEDS ORDERED: Lactulose 30 ml UDC PO PRN (16:35)
[2023-12-15] MEDS ORDERED: Morphine 2 MG/ML SYRINGE IV PRN (16:35)
[2023-12-15] MEDS ORDERED: Ondansetron 4 mg VIAL 2 MG/ML 2 ml VIAL IV PRN (16:35)
[2023-12-15] MEDS ORDERED: Magnesium Hydroxide LIQ 30 ML UDC PO PRN (16:35)
[2023-12-15] MEDS ORDERED: Calcium Carb (TUMS) 500 mg CHEW TAB PO PRN (16:35)
[2023-12-15] MEDS ORDERED: Ondansetron ODT 4 mg TAB 4 MG TAB PO PRN (16:35)
[2023-12-15] MEDS ORDERED: Propofol 10 mg/ml 100 ML BTL 1,000 MG/100 ML BTL ONE (16:59)
[2023-12-15] MEDS ORDERED: Bupivacaine-MPF SPINAL 7.5 MG/ML - 2ML AMP ONE (16:59)
[2023-12-15] MEDS ORDERED: ceFAZolin 2 GM in NS PREMIX 2 GM/100 ML BAG IVPB SCH (17:00)
[2023-12-15] MEDS ORDERED: Ondansetron 4 mg VIAL 2 MG/ML 2 ml VIAL ONE (17:38)
[2023-12-15] MEDS: Magnesium Hydroxide LIQ 30 ML UDC PO SCH (21:36)
[2023-12-16] MEDS: ceFAZolin 2 GM PREMIX 2 GM/50 ML BAG IV SCH (01:25)
[2023-12-16 06:31] LABS: ABS Lymphocytes 0.7 10^3/uL (1.0-4.8); ABS Monocytes 0.3 10^3/uL (0.0-0.9); ABS Neutrophils 8.8 10^3/uL (1.5-7.6); Hematocrit 40.7 % (35-45); Hemoglobin 14.2 g/dL (11.5-14.3); Lymphocyte % 6.8 %; Mean Corpuscular Hemoglobin 33.2 pg (27-33); Mean Corpuscular Hgb Conc 34.8 g/dL (31-36); Mean Corpuscular Volume 95.5 fL (80-97); Mean Platelet Volume 9.5 fL (7.5-11.2); Platelet Count 186 10^3/uL (150-450); Red Blood Count 4.26 10^6/uL (3.63-4.92); Red Cell Distribution Width 13.5 % (12-17); White Blood Count 9.8 10^3/uL (3.8-11.8)
[2023-12-16 08:01] LABS: Calcium 9.6 mg/dL (8.6-10.3); Creatinine, Serum 0.67 mg/dL (0.51-0.95); Potassium 4.5 mmol/L (3.5-5.0); eGFR CKD-EPI 96.9 (>60)
[2023-12-16] MEDS: Vitamin THERAPEUTIC TAB PO SCH (08:32)
[2023-12-16 10:08] VITALS: BP 125/61
== END 2023-12-16 13:20 | disposition home or self-care (01) ==
LOC: INTOOBSV 13:02 → AA 13:02 → SSU 19:57
PROVIDERS: ADMIT Orthopaedic Surgery Adult Reconstructive Orthopaedic Surgery; ATTEND Orthopaedic Surgery Adult Reconstructive Orthopaedic Surgery